=== PATIENT | male | born 1965 | race Caucasian/White ===

== ENCOUNTER 2017-02-22 16:20 | Emergency (ER) | payer OTHER ==
[2017-02-22 16:34] VITALS: RESP 18
--- NOTE | 2017-02-22 17:06 | ED ---
Upper Extremity HPI - General Chief Complaint: Extremity Injury, Upper Stated Complaint: IHS-Smashed hand Time Seen by Provider: 02/22/17 16:44 Source: patient, RN notes reviewed Mode of arrival: ambulatory Limitations: no limitations - History of Present Illness Initial Comments: 51-year-old male presents emergency Department with chief complaint of left hand injury. Patient states that he was at work and states that a block up last follow-up a few feet down onto his hand. He states he does away about 15 pounds. Patient states his tetanus was updated 1 year ago. He states there is small abrasion and laceration to his hand does not concern him but he states that he does have some swelling and discomfort to his left hand any is left- hand dominant. He denies any other injuries at this time. - Related Data Home Medications Medication Instructions Recorded Confirmed No Known Home Medications [No 02/22/17 02/22/17 Known Home Medications] Allergies Allergy/AdvReac Type Severity Reaction Status Date / Time No Known Allergies Allergy Verified 02/22/17 17:38 Review of Systems ROS Statement: Those systems with pertinent positive or pertinent negative responses have been documented in the HPI. ROS Other: All systems not noted in ROS Statement are negative. Past Medical History Past Medical History: No Reported History History of Any Multi-Drug Resistant Organisms: None Reported Past Surgical History: No Surgical Hx Reported Past Psychological History: No Psychological Hx Reported Smoking Status: Current every day smoker Past Alcohol Use History: Occasional Past Drug Use History: None Reported General Exam Limitations: no limitations General appearance: alert, in no apparent distress Head exam: Present: atraumatic, normocephalic, normal inspection Respiratory exam: Present: normal lung sounds bilaterally. Absent: respiratory distress, wheezes, rales, rhonchi, stridor Cardiovascular Exam: Present: regular rate, normal rhythm, normal heart sounds. Absent: systolic murmur, diastolic murmur, rubs, gallop, clicks Extremities exam: Present: other (Left hand there is 2 superficial irregular lacerations each measuring roughly 4 cm in length patient has moderate swelling to the left hand on the dorsal aspect and tenderness with palpation patient has full range of motion of all digits and neurovascular intact) Skin exam: Present: warm, dry, normal color Course Vital Signs 02/22/17 16:33 Temperature 98 F Pulse Rate 90 Respiratory 18 Rate Blood Pressure 131/84 O2 Sat by Pulse 97 Oximetry Medical Decision Making - Medical Decision Making 51-year-old male presented for right hand injury. There is no acute fracture. Patient has superficial lacerations that do not require closure. Patient's tetanus is up-to-date. Patient be discharged at this time Disposition Clinical Impression: Abrasion of left hand, Contusion of left hand Disposition: HOME SELF-CARE Condition: Stable Instructions: Abrasion (ED), Contusion in Adults (ED) Additional Instructions: Please return to the Emergency Department if symptoms worsen or any other concerns. Referrals: None,Stated [REFERRING] - 1-2 days Time of Disposition: 17:49
--- NOTE | 2017-02-22 17:54 | XR ---
EXAMINATION TYPE: XR hand complete LT DATE OF EXAM: 02/22/2017 COMPARISON: NONE HISTORY: Contusion TECHNIQUE: 3 views FINDINGS: There is soft tissue swelling on the dorsum of the hand. I see no fracture nor dislocation. There are no erosions. IMPRESSION: Soft tissue swelling. No fracture seen.
[2017-02-22 18:16] VITALS: BP 113/72; PULSE 76; TEMP 97
== END 2017-02-22 18:16 | disposition home or self-care (01) ==
LOC: EC 16:20
DX: S61.412A Laceration without foreign body of left hand, initial encounter (principal); F17.200 Nicotine dependence, unspecified, uncomplicated; W20.8XXA Other cause of strike by thrown, projected or falling object, initial encounter; Y92.69 Other specified industrial and construction area as the place of occurrence of the external cause; Y99.0 Civilian activity done for income or pay
CPT/HCPCS: 99283

== ENCOUNTER 2018-07-18 00:31 | Emergency (ER) | payer OTHER ==
[2018-07-18] MEDS ORDERED: KETOROLAC 30 MG/ML 1 ML VIAL IVP STA (02:32)
[2018-07-18 02:46] LABS: Basophils # (A) 0.1 k/uL (0-0.2); Basophils % (A) 1 %; Eosinophils # (A) 0.3 k/uL (0-0.7); Eosinophils % (A) 4 %; HCT 45.2 % (39.0-53.0); Lymphocytes # (A) 1.9 k/uL (1.0-4.8); Lymphocytes % (A) 22 %; MCH 31.6 pg (25.0-35.0); MCHC 33.1 g/dL (31.0-37.0); MCV 95.4 fL (80.0-100.0); Mean Platelet Volume 8.2; Monocytes # (A) 0.5 k/uL (0-1.0); Monocytes % (A) 6 %; Neutrophils # (A) 5.6 k/uL (1.3-7.7); Neutrophils % (A) 67 %; Platelet Count 165 k/uL (150-450); RBC 4.74 m/uL (4.30-5.90); RDW 13.1 % (11.5-15.5); WBC 8.4 k/uL (3.8-10.6)
[2018-07-18 02:54] LABS: ALT 24 U/L (21-72); AST 17 U/L (17-59); Albumin 4.1 g/dL (3.5-5.0); Alkaline Phosphatase 86 U/L (38-126); Amylase 47 U/L (30-110); Anion Gap 5 mmol/L; Blood Urea Nitrogen 23 mg/dL (9-20); Calcium 9.2 mg/dL (8.4-10.2); Carbon Dioxide 25 mmol/L (22-30); Chloride 109 mmol/L (98-107); Glucose 117 mg/dL (74-99); Lipase 92 U/L (23-300); Potassium 4.3 mmol/L (3.5-5.1); Sodium 139 mmol/L (137-145); Total Bilirubin 0.4 mg/dL (0.2-1.3); Total Protein 6.6 g/dL (6.3-8.2)
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
--- NOTE | 2018-07-18 03:30 | CT ---
EXAM: CT Abdomen and Pelvis With Intravenous Contrast CLINICAL HISTORY: ITS.REASON CT Reason: Pain TECHNIQUE: Axial computed tomography images of the abdomen and pelvis with intravenous contrast. CTDI is 13.3 mGy and DLP is 545.6 mGy-cm. This CT exam was performed using one or more of the following dose reduction techniques: automated exposure control, adjustment of the mA and/or kV according to patient size, and/or use of iterative reconstruction technique. COMPARISON: No relevant prior studies available. FINDINGS: Lung bases: Unremarkable. No mass. No consolidation. ABDOMEN: Liver: Unremarkable. No mass. Gallbladder and bile ducts: Unremarkable. No calcified stones. No ductal dilation. Pancreas: Unremarkable. No mass. No ductal dilation. Spleen: Unremarkable. No splenomegaly. Adrenals: Unremarkable. No mass. Kidneys and ureters: Unremarkable. No solid mass. No hydronephrosis. Stomach and bowel: Stool throughout the colon. No colitis, diverticulitis or appendicitis. No bowel obstruction. PELVIS: Appendix: See above. Bladder: Unremarkable. No mass. Reproductive: Unremarkable as visualized. ABDOMEN and PELVIS: Intraperitoneal space: Unremarkable. No free air. No significant fluid collection. Bones/joints: No acute fracture. No dislocation. Soft tissues: Unremarkable. Vasculature: Unremarkable. No abdominal aortic aneurysm. Lymph nodes: Unremarkable. No enlarged lymph nodes. IMPRESSION: Stool throughout the colon can be seen with constipation. No acute or inflammatory disease or bowel obstruction.
[2018-07-18 04:00] VITALS: BP 129/79; PULSE 76; RESP 16; TEMP 98
== END 2018-07-18 04:00 | disposition home or self-care (01) ==
LOC: EC 00:31
DX: R10.32 Left lower quadrant pain (principal); F17.210 Nicotine dependence, cigarettes, uncomplicated; Z71.6 Tobacco abuse counseling
CPT/HCPCS: 36415; 80053; 82150; 83690; 85025; 74177; 99284; 99406; 96374; J1885; Q9967

== ENCOUNTER → 2018-07-19 | Outpatient (CLI) | payer OTHER ==
--- NOTE | 2018-07-19 15:23 | US ---
EXAMINATION TYPE: US scrotum with doppler. Grayscale and color Doppler Duplex imaging performed of jay lria scrotum. DATE OF EXAM: 07/19/2018 COMPARISON: NONE CLINICAL HISTORY: N50.812 OTHER SPECIFIED DISORDER OF MALE GENITALS. Left teste pain. Swelling. Connor rigoberto something heavy Wednesday night/Wednesday morning. Vasectomy x 8 years ago. EXAM MEASUREMENTS: TESTICLES: Right Testicle: 4.0 x 4.2 x 3.4 cm Left Testicle: 4.1 x 3.2 x 2.5 cm EPIDIDYMIS HEAD: Right Epididymis: 1.1 x 1.2 x 0.9 cm Left Epididymis: 0.8 x 1.3 x 0.9 cm Doppler performed to assess for testicular vascularity; good bilateral color flow and waveforms are s een. There is no evidence of testicular torsion. Presence of hydroceles: no Presence of varicoceles: left scrotal sac IMPRESSION: 1. Left-sided varicoceles. 2. Normal scrotal ultrasound
== END ==
LOC: RADUSWWP 14:33
PROVIDERS: ATTEND Emergency Medicine
DX: I86.1 Scrotal varices (principal)
CPT/HCPCS: 76870; 93975

== ENCOUNTER 2018-07-26 23:27 | Emergency (ER) | payer OTHER ==
[2018-07-26 23:50] VITALS: RESP 18
[2018-07-27] MEDS ORDERED: ACET/COD 300 MG/30 MG STARTER PACK 6 TAB BTL PO STA (00:22)
--- NOTE | 2018-07-27 00:23 | ED ---
Extremity Problem HPI - General Chief complaint: Extremity Problem,Nontraumatic Stated complaint: IHS Recheck Poss Strain Time Seen by Provider: 07/26/18 23:57 Source: patient Mode of arrival: ambulatory Limitations: no limitations - History of Present Illness Initial comments: 52-year-old male patient presents to the emergency department today for eval uation of left groin pain. Patient states that approximately 2 weeks ago he did strain his left groin all at work. Patient states he's had extensive evaluation by a health services and did have CT of the abdomen and pelvis. States that they did rule out hernia. Patient states he was starting to feel better but was return to work today with no restrictions. Patient states he was doing a lot of stairs at work and this caused his pain to worsen. Patient denies any difficulty with bowel movements or urination. Denies any fevers or chills. Denies any nausea or vomiting. Patient denies numbness or tingling to the lower extremities, denies saddle anesthesia, or loss of bowel or bladder control. Patient does have chronic low back pain denies anything new with this. Patient denies any recent rash, shortness breath, chest pain, dizziness, weakness, hematuria, dysuria, urinary urgency, urinary frequency, headache, visual changes, or any other complaints. - Related Data Home Medications Medication Instructions Recorded Confirmed No Known Home Medications 02/22/17 02/22/17 Allergies Allergy/AdvReac Type Severity Reaction Status Date / Time No Known Allergies Allergy Verified 07/18/18 00:48 Review of Systems ROS Statement: Those systems with pertinent positive or pertinent negative responses have been documented in the HPI. ROS Other: All systems not noted in ROS Statement are negative. Past Medical History Past Medical History: No Reported History History of Any Multi-Drug Resistant Organisms: None Reported Past Surgical History: No Surgical Hx Reported Past Psychological History: No Psychological Hx Reported Smoking Status: Current every day smoker Past Alcohol Use History: Occasional Past Drug Use History: None Reported General Exam Limitations: no limitations General appearance: alert, in no apparent distress, other (Physical well- developed, well-nourished adult male patient in no acute distress. Vital signs upon presentation are temperature 97.8F, pulse 78, respirations 18, blood pressure 113/71, pulse ox 98% on room air.) Eye exam: Present: normal appearance, PERRL, EOMI. Absent: scleral icterus, conjunctival injection, periorbital swelling ENT exam: Present: normal exam, normal oropharynx, mucous membranes moist Respiratory exam: Present: normal lung sounds bilaterally. Absent: respiratory distress, wheezes, rales, rhonchi, stridor Cardiovascular Exam: Present: regular rate, normal rhythm, normal heart sounds. Absent: systolic murmur, diastolic murmur, rubs, gallop, clicks GI/Abdominal exam: Present: soft, normal bowel sounds. Absent: distended, tenderness, guarding, rebound, rigid, hernia exam: Present: normal inspection. Absent: testicular tenderness, scrotal swelling Back exam: Present: normal inspection Neurological exam: Present: alert, oriented X3, CN II-XII intact Psychiatric exam: Present: normal affect, normal mood Skin exam: Present: warm, dry, intact, normal color. Absent: rash Course Vital Signs 07/26/18 07/27/18 23:45 00:59 Temperature 97.8 F 98 F Pulse Rate 78 65 Respiratory 18 18 Rate Blood Pressure 113/71 104/77 O2 Sat by Pulse 98 98 Oximetry Medical Decision Making - Medical Decision Making 52-year-old male patient presents to the emergency department today for evaluation of reinjury to the left groin strain. Physical examination does reveal some mild left groin tenderness. No erythema or presence of hernia. No testicular tenderness. Vital signs are stable. Given that there is no actual injury today we did not perform any imaging. Patient will be taken off work for the next 2 days and instructed to follow-up with [employer] [facility] for clearance to return to work. Return parameters were discussed in detail. He verbalizes understanding and agrees with this plan. Disposition Clinical Impression: Strain of left inguinal muscle Disposition: HOME SELF-CARE Condition: Good Instructions (If sedation given, give patient instructions): Groin Strain (ED) Additional Instructions: Apply ice to the painful areas. Take medication as directed. Return to the emergency department immediately for any new, worsening, or concerning symptoms. Is patient prescribed a controlled substance at d/c from ED?: No Referrals: None,Stated [Primary Care Provider] - 1-2 days Time of Disposition: 00:23
[2018-07-27 01:01] VITALS: BP 104/77; PULSE 65; TEMP 98
== END 2018-07-27 00:59 | disposition home or self-care (01) ==
LOC: EC 23:27
DX: S39.011A Strain of muscle, fascia and tendon of abdomen, initial encounter (principal); F17.200 Nicotine dependence, unspecified, uncomplicated; X58.XXXA Exposure to other specified factors, initial encounter; Y92.69 Other specified industrial and construction area as the place of occurrence of the external cause; Y99.0 Civilian activity done for income or pay
CPT/HCPCS: 82075; 99283

== ENCOUNTER → 2018-07-28 | Outpatient (CLI) | payer OTHER ==
--- NOTE | 2018-07-28 15:14 | XR ---
EXAMINATION TYPE: XR Hip Complete LT DATE OF EXAM: 07/28/2018 COMPARISON: NONE HISTORY: 52-year-old male posterior subluxation of left hip, strain from lifting 10 days ago TECHNIQUE: 2 views FINDINGS: There is mild marginal spurring at the femoral head neck junction and superolateral acetabulum. Overa ll hip joint space appears maintained. No acute fracture, subluxation, or dislocation. IMPRESSION: Mild degenerative spurring at the hip. Overall maintained hip joint space. No acute osseous abnormali ty seen.
== END | disposition home or self-care (01) ==
LOC: RADXRMAIN 14:54
PROVIDERS: ATTEND Emergency Medicine
DX: M77.8 Other enthesopathies, not elsewhere classified (principal)
CPT/HCPCS: 73502